=== PATIENT | female | born 1950 | race Caucasian/White ===

== ENCOUNTER 2024-07-17 13:00 | Emergency (ER) | payer OTHER, SELFPAY ==
[2024-07-17] VITALS (7 sets, daily range): BP systolic 139–159; BP diastolic 60–77; BMI 37.8
[2024-07-17 13:34] LABS: % Basophils 0.4 % (0-2); % Eosinophils 0.4 % (0-6); % Immature Granulocytes 0.3 % (0-0.5); % Lymphocytes 5.1 % (20.5-51.1); % Monocytes 6.9 % (1.7-9.3); % Neutrophils 86.9 % (42.2-75.2); Absolute Lymphocytes 0.5 10^3/uL (1.2-3.4); Absolute Monocytes 0.7 10^3/uL (0.1-0.6); Absolute Neutrophils 9.2 10^3/uL (1.4-6.5); Hematocrit 31.6 % (37.0-47.0); Hemoglobin 10.1 g/dL (12.0-16.0); Mean Corpuscular Hgb 29.9 pg (27.0-31.0); Mean Corpuscular Volume 93.5 fL (81.0-99.0); Mean Platelet Volume 10.8 fL (7.4-10.4); Nucleated Red Blood Cells % 0 %; Platelet Count 248 10^3/uL (130-400); Red Blood Cell Count 3.38 10^6/uL (4.20-5.40); Red Cell Dist. Width 13.6 % (11.5-14.5); White Blood Cell Count 10.6 10^3/uL (4.8-10.8)
[2024-07-17 13:51] LABS: ALT (SGPT) 20 U/L (0-35); AST (SGOT) 27 U/L (14-36); Albumin 3.4 g/dl (3.5-5.0); Alkaline Phosphatase 152 U/L (38-126); Blood Urea Nitrogen 32 mg/dl (7-17); Calcium 8.9 mg/dl (8.4-10.2); Carbon Dioxide 27 mmol/L (22-30); Chloride 102 mmol/L (98-107); Glucose 350 mg/dl (70-99); Lipase 21 U/L (23-300); Potassium 4.9 mmol/L (3.5-5.1); Sodium 137 mmol/L (135-145); Total Bilirubin 0.5 mg/dl (0.2-1.3); Total Protein 7.4 g/dl (6.3-8.2)
[2024-07-17] MEDS: TORADOL 15 MG IV (15:20)
[2024-07-17] MEDS: NSS 1000 IV (15:20)
--- NOTE | 2024-07-17 15:23 | ED.GENMED ---
History of Present Illness
General
Chief Complaint: Abdominal Pain
Source: patient and family
Exam Limitations: none
Time Seen by Provider: 07/17/24 15:04
Nursing documentation reviewed up to this point in time: agreed with
History of Present Illness
History of Present Illness:
74-year-old female presenting to the emergency department today with concerns of constipation worsening abdominal bloating and discomfort over the past few days. No specific nausea vomiting. Does have a history of ovarian cancer no specific
treatment at this time.
Review of Systems
Review of Systems
Allergies reviewed?: Yes
All Other Systems: ROS reviewed and negative except as documented in HPI and ROS
Phy Exam
Physical Exam
Physical Exam:
GENERAL: Alert , in no apparent distress
EYE: pupils equal and reactive
NECK: Supple, no significant adenopathy.
ENT: o/p clr, mmm.
CARDIAC: Regular rate and rhythm .
LUNGS: Clear breath sounds bilaterally, no acute respiratory distress, no wheezes/rales/rhonchi
ABDOMEN: Diffuse vague abdominal discomfort no specific peritoneal signs.
NEUROLOGICAL: Alert and oriented, no focal neuro deficits
SKIN: Warm and dry, skin intact.
MUSCULOSKELETAL: No edema, well perfused.
PSYCH: Normal and appropriate interaction.
Course
Orders/Labs/Results
Orders:
Orders
07/17/24 13:17
EKG [Electrocardiogram (*1)] Urgent
Reason for Study: Abdominal Pain
07/17/24 13:18
EKG- Treatment ONCE
07/17/24 13:24
Complete Blood Count/With Diff Urgent
Comprehensive Metabolic Panel Urgent
Lipase Urgent
07/17/24 15:09
CT Abd/Pel (IV only)-DH only Urgent
Comment:
Reason For Exam: abd pain
07/17/24 15:10
0.9% Sodium Chloride 1000 ml [Nss] 1,000 ml IV BOLUS
Ketorolac [Toradol] 15 mg IV NOW STA
07/17/24 18:15
Urinalysis Reflex To Culture Urgent
Date Specimen was Collected: 07/17/24
Time Specimen was Collected: 18:11
Urine Microscopic Reflex Cult Urgent
Urine Culture Urgent
ABAD Source: U
Specimen Description:
Date Specimen was Collected: 07/17/24
Time Specimen was Collected: 18:11
07/17/24 18:17
Dicyclomine HCl [Bentyl] 20 mg IM NOW STA
Ondansetron Injectable [Zofran] 4 mg IV NOW STA
07/17/24 19:33
Famotidine [Pepcid] 20 mg IV NOW STA
Mag Hydrox/Al Hydrox/Simeth [Maalox] 30 ml Phenobarb/Hyoscy/Atropine/Scop [] 10 ml PO NOW
07/17/24 19:44
Mag Hydrox/Al Hydrox/Simeth [Maalox] 30 ml .ROUTE .[facility]K-MED ONE
Phenobarb/Hyoscy/Atropine/Scop [] 10 ml .ROUTE .STK-MED ONE
Abnormal Lab Results
07/17/24 07/17/24
13:24 18:15
RBC 3.38 L 10^6/uL
(4.20-5.40)
Hgb 10.1 L g/dL
(12.0-16.0)
Hct 31.6 L %
(37.0-47.0)
MCHC 32.0 L g/dL
(33.0-37.0)
MPV 10.8 H fL
(7.4-10.4)
Absolute Neuts (auto) 9.2 H 10^3/uL
(1.4-6.5)
Absolute Lymphs (auto) 0.5 L 10^3/uL
(1.2-3.4)
Absolute Monos (auto) 0.7 H 10^3/uL
(0.1-0.6)
Neutrophils % 86.9 H %
(42.2-75.2)
Lymphocytes % 5.1 L %
(20.5-51.1)
BUN 32 H mg/dl
(7-17)
Creatinine 1.1 H mg/dL
(0.6-1.0)
Glucose 350 H mg/dl
(70-99)
Alkaline Phosphatase 152 H U/L
(38-126)
Albumin 3.4 L g/dl
(3.5-5.0)
Lipase 21 L U/L
(23-300)
Ur Occult Blood Reflex 1+ A
(Negative)
Leukocyte Esterase Rfl 1+ A
(Negative)
Urine RBC 7-10 A /HPF
(0-2)
Urine WBC (Reflex) 11-15 A /HPF
(0-5)
Urine Bacteria (Reflex) Moderate A
(Negative)
Urine Glucose 1+ A
(Negative)
Urine Albumin (Reflex) 3+ A
(Neg - Trace)
07/17/24 13:24
07/17/24 13:24
Vital Signs
Initial and Last Documented VS:
Initial Vital Signs
Temp Pulse Resp BP Pulse Ox
98.4 F 74 16 139/60 94
07/17/24 13:10 07/17/24 13:10 07/17/24 13:10 07/17/24 13:10 07/17/24 13:10
Last Documented Vital Signs
Temp Pulse Resp BP Pulse Ox
98.4 F 74 16 159/73 94
07/17/24 13:10 07/17/24 13:10 07/17/24 13:10 07/17/24 20:00 07/17/24 13:10
MDM/Problems Addressed
MDM/Problems Addressed:
74-year-old female presenting to the emergency department today with concerns of diffuse abdominal pain worsening over the past few days but somewhat present over the past few weeks. Upon arrival vital signs are normal. Patient does have
reproducible tenderness throughout the abdomen. Plan for CT scan for further assessment CT showing swollen lymph nodes as well as cervical mass unclear if this is changed from previous. Patient will correlate as an outpatient with her
grants analyst. Otherwise having some ongoing upper abdominal burning discomfort possibly could be related to an ulcer was started on pantoprazole otherwise stable for outpatient management. Return precautions given. Urinalysis did show some white
blood cells patient does not have any urinary symptoms at this time. Plan to hold on antibiotics at this time.
*Critical Care Note
Total Time (30-74mins, 75-104mins- exclusive of procedures): Not Applicable
ED Attending Note
-
Portions of this chart may have been created with voice recognition software.� Occasional wrong word or��sound alike� substitutions may have occurred due to the inherent limitations of voice recognition software.
Discharge Plan
Departure
Patient Disposition: Home (Routine Discharge)
Date of Disposition: 07/17/24
Time of Disposition: 20:25
Patient with high blood pressure during this ER visit?: No
Condition: Good
Covid-19: Not Applicable
Discharge Problem:
Abdominal pain, Abdominal lymphadenopathy, Cervical mass, Hyperglycemia
Instructions: Abdominal Pain
Prescriptions:
New
pantoprazole 20 mg tablet,delayed release (DR/EC)
20 mg PO DAILY Qty: 14 0RF
Referrals:
Love Parker MD [Active] - Follow up in 10 days
Cameron Pratt DO [Family Provider] -
Activity Restrictions/Additional Instructions:
You came to the emergency department today with concerns of abdominal pain. Here you were found to have an elevated sugar level which you should watch closely at home and make sure this is coming down drink plenty of fluids and avoid sugar.
Otherwise you are seen to have swollen lymph nodes and a cervical mass. Please follow-up closely as an outpatient with your managing doctor for this in the next week or 2. Otherwise you can take the potent taupe resolved to help with symptoms.
Return to the emergency department any worsening, new or concerning symptoms.
Interventions
Interventions:
*Risk Screen - Suicide Last Done: 07/17/24 13:10
*General Assessment Last Done: 07/17/24 13:10
*Neglect/Abuse Screening Last Done: 07/17/24 15:23
ED- Fall Risk Assessment Last Done: 07/17/24 15:22
*ED COVID-19 Vaccine History Last Done: 07/17/24 13:10
CR-[id number] Assessment Last Done: 07/17/24 15:23
Discharge Date and Time
Print Language: ESTONIAN
[2024-07-17 18:20] LABS: Urine Albumin 3+ (Neg - Trace); Urine Bilirubin Negative (Negative); Urine Character Clear (Clear); Urine Color Yellow; Urine Glucose 1+ (Negative); Urine Ketone Negative (Negative); Urine Leukocyte 1+ (Negative); Urine Nitrite Negative (Negative); Urine Occult Blood 1+ (Negative); Urine Urobilinogen Negative (Neg - 1+)
[2024-07-17] MEDS: ZOFRAN 4 MG IV (18:27)
[2024-07-17] MEDS: BENTYL 20 MG IM (18:28)
[2024-07-17 18:56] LABS: Urine Bacteria Moderate (Negative)
[2024-07-17] MEDS: PEPCID 20 MG IV (19:52)
[2024-07-17] MEDS: MAALOX 40 PO (19:52)
[2024-07-17 20:33] LABS: Glucose - Point of Care 312 mg/dl (70-99)
== END 2024-07-17 20:40 | disposition home or self-care (01) ==
LOC: EMR 13:00
PROVIDERS: Emergency Medicine; Physician Assistant; EMERGENCY PHYSICIAN Emergency Medicine; FAMILY PHYSICIAN Family Medicine
DX: R10.84 Generalized abdominal pain (principal); R59.0 Localized enlarged lymph nodes; Z85.43 Personal history of malignant neoplasm of ovary; R19.00 Intra-abdominal and pelvic swelling, mass and lump, unspecified site
CPT/HCPCS: 96374; 96375; 96372; 96361; 99284; 74177; 80053; 81003; 81015; 82962; 83690; 85025; 87086; 93005; Q9967

== ENCOUNTER 2024-10-16 07:05 | Emergency (ER) | payer OTHER, SELFPAY ==
[2024-10-16 07:23] VITALS: BP 158/76; BMI 33.9
[2024-10-16 07:32] LABS: % Basophils 0.5 % (0-2); % Eosinophils 2.3 % (0-6); % Immature Granulocytes 0.5 % (0-0.5); % Lymphocytes 7.2 % (20.5-51.1); % Monocytes 5.4 % (1.7-9.3); % Neutrophils 84.1 % (42.2-75.2); Absolute Eosinophils 0.2 10^3/uL (0-0.7); Absolute Lymphocytes 0.6 10^3/uL (1.2-3.4); Absolute Monocytes 0.5 10^3/uL (0.1-0.6); Hematocrit 29.1 % (37.0-47.0); Hemoglobin 9.5 g/dL (12.0-16.0); Mean Corp Hgb Conc. 32.6 g/dL (33.0-37.0); Mean Corpuscular Hgb 29.7 pg (27.0-31.0); Mean Corpuscular Volume 90.9 fL (81.0-99.0); Mean Platelet Volume 10.9 fL (7.4-10.4); Nucleated Red Blood Cells % 0 %; Platelet Count 230 10^3/uL (130-400); Red Cell Dist. Width 13.4 % (11.5-14.5); White Blood Cell Count 8.4 10^3/uL (4.8-10.8)
--- NOTE | 2024-10-16 07:32 | ED.GENMED ---
History of Present Illness
General
Chief Complaint: Breathing Problem
Source: patient
Exam Limitations: none
Time Seen by Provider: 10/16/24 07:15
History of Present Illness
History of Present Illness:
74-year-old female presents with intermittent cough and fatigue over the past 3 weeks. She thought at 1 point she was improving but feels worse at this time. She notes a productive cough. She denies any measurable fever. There is no vomiting.
She does note leg swelling and she has been wrapping her legs. She denies chest pain. No abdominal pain. No known sick contacts. No other complaints at this time
Phy Exam
Physical Exam
Physical Exam:
General: Well-appearing female no acute respiratory distress
HEENT: Normocephalic atraumatic
Heart: Regular rate and rhythm
Lungs: Rhonchorous bilaterally subtle expiratory wheeze
Abdomen is soft nontender nondistended
Extremities: No cyanosis but there is pitting edema to the lower extremities bilaterally
Skin warm no rash
Scores
Heart Failure Risk
Heart Failure Risk Score: Not Applicable
Course
Orders/Labs/Results
Orders:
Orders
10/16/24
Electrocardiogram (*1) Stat
Comment: DONE EMR
10/16/24 07:08
CXR2 [CR Chest - 2 Views ] Urgent
Comment:
Reason For Exam: shortness of breath
10/16/24 07:12
COVID-19 Antigen Urgent
Source: Nasal Swab
Complete Blood Count/With Diff Urgent
NT-proBNP Urgent
Influenza A+B Rapid Molecular Urgent
ABAD Source: Nasal Swab
Specimen Description:
10/16/24 07:30
Ipratropium/Albuterol Sulfate [Duoneb] 3 ml INH R NOW STA
10/16/24 08:13
Ondansetron Injectable [Zofran] 4 mg .ROUTE .[facility]-MED ONE
Ondansetron Injectable [Zofran] 4 mg IV NOW STA
Ondansetron Injectable [Zofran] 4 mg IV NOW STA
10/16/24 08:18
Comprehensive Metabolic Panel Urgent
Abnormal Lab Results
10/16/24 10/16/24
07:12 08:18
RBC 3.20 L 10^6/uL
(4.20-5.40)
Hgb 9.5 L g/dL
(12.0-16.0)
Hct 29.1 L %
(37.0-47.0)
MCHC 32.6 L g/dL
(33.0-37.0)
MPV 10.9 H fL
(7.4-10.4)
Absolute Neuts (auto) 7.0 H 10^3/uL
(1.4-6.5)
Absolute Lymphs (auto) 0.6 L 10^3/uL
(1.2-3.4)
Neutrophils % 84.1 H %
(42.2-75.2)
Lymphocytes % 7.2 L %
(20.5-51.1)
Chloride 108 H mmol/L
(98-107)
BUN 36 H mg/dl
(7-17)
Glucose 294 H mg/dl
(70-99)
Alkaline Phosphatase 150 H U/L
(38-126)
10/16/24 07:12
10/16/24 08:18
Vital Signs
Initial and Last Documented VS:
Initial Vital Signs
Pulse Resp Pulse Ox
73 17 92
10/16/24 07:21 10/16/24 07:21 10/16/24 07:21
Last Documented Vital Signs
Temp Pulse Resp BP Pulse Ox
97.8 F 76 21 158/76 94
10/16/24 07:23 10/16/24 07:23 10/16/24 07:23 10/16/24 07:23 10/16/24 08:23
MDM/Problems Addressed
Differential Diagnosis Includes:
Patient with cough leg swelling intermittent over the past 3 weeks. Consider bronchitis versus pneumonia versus CHF versus COVID or flu
Chest x-ray pending COVID and flu test pending. Check labs. DuoNeb ordered
*Critical Care Note
Total Time (30-74mins, 75-104mins- exclusive of procedures): Not Applicable
Update Note
Update Note:
Patient feeling better after nebulizer. Chest x-ray shows no obvious acute finding. No evidence of overt heart failure. She got some rest after the nebulizer. Bronchitis. She is not hypoxic. No indication for admission. Will send home with
nebulizer albuterol solution and steroid
ED Attending Note
-
Portions of this chart may have been created with voice recognition software.� Occasional wrong word or��sound alike� substitutions may have occurred due to the inherent limitations of voice recognition software.
Discharge Plan
Departure
Patient Disposition: Home (Routine Discharge)
Date of Disposition: 10/16/24
Time of Disposition: 10:32
Patient with high blood pressure during this ER visit?: No
Discharge Problem:
Acute bronchitis
Instructions: Acute Bronchitis, Adult (DC)
Prescriptions:
New
albuterol sulfate 2.5 mg /3 mL (0.083 %) solution for nebulization
2.5 mg inhalation Q6H PRN (Reason: bronchospasm) Qty: 75 0RF
prednisone 20 mg tablet
40 mg PO DAILY 5 Days Qty: 10 0RF
No Action
pantoprazole 20 mg tablet,delayed release (DR/EC)
20 mg PO DAILY Qty: 14 0RF
Referrals:
Davian Mitchell MD [Family Provider] -
Activity Restrictions/Additional Instructions:
Continue to use nebulizer as needed for wheeze or trouble breathing. Use steroid as directed. Please advise that the steroid may increase her blood sugar. Return if worse otherwise follow-up with your doctor
Interventions
Interventions:
*Risk Screen - Suicide Last Done: 10/16/24 07:23
*General Assessment Last Done: 10/16/24 07:23
*Neglect/Abuse Screening Last Done: 10/16/24 07:23
*ED- Fall Risk Assessment Last Done: 10/16/24 07:23
*ED COVID-19 Vaccine History Last Done: 10/16/24 07:23
ED- Cardiac Assessment Last Done: 10/16/24 07:23
ED- Pulmonary Assessment Last Done: 10/16/24 07:23
Discharge Date and Time
Print Language: [place]
[2024-10-16 07:50] LABS: COVID-19 Antigen Negative (Negative)
[2024-10-16 08:00] VITALS: BP 155/75
[2024-10-16 08:12] LABS: NT-proBNP 795 pg/ml
--- NOTE | 2024-10-16 08:23 | EDRN ---
the pts Sp02 dropped from 96% on RA to 89% on RA, this RN notified the provider and placed the pt on 2L NC, Sp02 currently 94%
[2024-10-16] MEDS: ZOFRAN 4 MG IV (08:26)
[2024-10-16] MEDS: DUONEB 3 ML INH (08:26)
[2024-10-16 08:41] LABS: ALT (SGPT) 12 U/L (0-35); AST (SGOT) 22 U/L (14-36); Albumin 3.6 g/dl (3.5-5.0); Alkaline Phosphatase 150 U/L (38-126); Blood Urea Nitrogen 36 mg/dl (7-17); Calcium 8.6 mg/dl (8.4-10.2); Carbon Dioxide 22 mmol/L (22-30); Chloride 108 mmol/L (98-107); Estimated Creatinine Clearance 53 ml/min; Glucose 294 mg/dl (70-99); Potassium 4.3 mmol/L (3.5-5.1); Sodium 140 mmol/L (135-145); Total Bilirubin 0.5 mg/dl (0.2-1.3); Total Protein 7.6 g/dl (6.3-8.2); eGFR 58.75
--- NOTE | 2024-10-16 10:30 | EDRN ---
per the provider Elmer MOLINA the pt was taken off of 02, the pt is 96% on RA
[2024-10-16 10:58] VITALS: BP 145/86
== END 2024-10-16 11:00 | disposition home or self-care (01) ==
LOC: EMR 07:05
PROVIDERS: EMERGENCY PHYSICIAN Emergency Medicine; FAMILY PHYSICIAN Radiology Radiation Oncology
DX: J20.9 Acute bronchitis, unspecified (principal); Z11.52 Encounter for screening for COVID-19
CPT/HCPCS: 99285; 96374; 94640; 71046; 80053; 83880; 85025; 87502; 87811; 93005